=== PATIENT | male | born 1945 | race Caucasian/White ===

== ENCOUNTER 2023-03-09 23:35 | Inpatient (IN) | payer OTHER ==
[~2023-03-09] VITALS: Ht 170.2 cm; Wt 69.1 kg
[2023-03-09] MEDS ORDERED: PANTOPRAZOLE SODIUM 40 MG/VIAL IV ONE (23:45)
[2023-03-10] LABS: BASOPHILS % 0.2 % (0.0-2.0); EOSINOPHILS % 1.3 % (0.0-5.0); HEMATOCRIT. 28.2 % (42.0-52.0); HEMOGLOBIN. 9.5 g/dL (14.0-18.0); MEAN CORPUSCULAR HEMOGLOBIN 28.4 pg (28.0-32.0); MEAN CORPUSCULAR VOLUME 84.2 fL (80.0-94.0); MEAN PLATELET VOLUME 8.5 fl (7.4-10.4); MONOCYTES % 6.6 % (2.0-8.0); NEUTROPHILS % 59.9 % (40.0-76.0); PLATELET 230 x1000/uL (130-400); RED BLOOD CELL COUNT 3.35 mill/uL (4.7-6.1); RED CELL DISTRIBUTION WIDTH 14.6 % (11.6-14.6)
[2023-03-10 00:10] LABS: CHLORIDE 110 mEq/L (98-107)
[2023-03-10 00:11] LABS: INR 1.1; PARTIAL THROMBOPLASTIN TIME 25.6 sec (23.4-31.0); PROTHROMBIN TIME 11.5 sec (9.6-11.0)
[2023-03-10 00:20] LABS: ETHANOL BLOOD < 10 mg/dL; TOTAL IRON BINDING CAPACITY 264 ug/dL (250-450)
[2023-03-10 00:41] LABS: VITAMIN B12 SERUM 456 pg/mL (211-911)
[2023-03-10 01:30] LABS: *AMPHETAMINES SCREEN URINE NEGATIVE (NEGATIVE); *BARBITURATES SCREEN URINE NEGATIVE (NEGATIVE); *BENZODIAZEPINES SCREEN URINE NEGATIVE (NEGATIVE); *COCAINE SCREEN URINE NEGATIVE (NEGATIVE); CANNABINOID URINE SCREEN NEGATIVE (NEGATIVE); METHADONE URINE SCREEN NEGATIVE (NEGATIVE); OPIATES URINE SCREEN NEGATIVE (NEGATIVE); PHENCYCLIDINE URINE SCREEN NEGATIVE (NEGATIVE)
[2023-03-10 04:32] VITALS: BP 125/73
[2023-03-10 04:37] VITALS: BP 125/73
[2023-03-10] MEDS ORDERED: DOCUSATE SODIUM 100MG CAPSULE PO PRN (06:30)
[2023-03-10] MEDS ORDERED: ONDANSETRON HCL 4MG/2ML INJ IV PRN (06:30)
[2023-03-10] MEDS ORDERED: ACETAMINOPHEN 325MG TABLET PO PRN (06:30)
[2023-03-10] MEDS ORDERED: GUAIFENESIN 200MG/10ML SUGAR FREE UDC PO PRN (06:30)
[2023-03-10] MEDS ORDERED: IPRATROPIUM/ALBUTEROL 0.5-3(2.5)MG/3ML NEB HHN PRN (06:30)
[2023-03-10] MEDS ORDERED: CLONIDINE 0.1MG TABLET PO PRN (06:30)
[2023-03-10] MEDS ORDERED: DEXTROSE 50% WATER 50ML SYRINGE IV PRN (06:45)
[2023-03-10] MEDS ORDERED: PANTOPRAZOLE SODIUM 40 MG/VIAL IV SCH (06:50)
[2023-03-10] MEDS: BLOOD SUGAR DIAGNOSTIC STRIP TEST SCH ×4 (06:50→20:15)
[2023-03-10] MEDS: DEXT 5%/0.45% NACL 1000ML 1,000 ML IV SCH ×2 (06:54→20:14)
[2023-03-10] MEDS: INSULIN LISPRO 100 UNITS/ML SUBCUT SCH ×4 (07:02→20:14)
[2023-03-10] MEDS: METRONIDAZOLE 500 MG PREMIX 100 ML IV SCH ×2 (08:20→16:52)
[2023-03-10 08:45] VITALS: BP 108/70
[2023-03-10 10:39] LABS: BASOPHILS % 0.3 % (0.0-2.0); EOSINOPHILS % 0.9 % (0.0-5.0); HEMATOCRIT. 27.7 % (42.0-52.0); HEMOGLOBIN. 9.5 g/dL (14.0-18.0); LYMPHOCYTES % 23.6 % (20.0-50.0); MEAN CORPUSCULAR HEMOGLOBIN 28.7 pg (28.0-32.0); MEAN CORPUSCULAR VOLUME 83.3 fL (80.0-94.0); MEAN PLATELET VOLUME 9.1 fl (7.4-10.4); MONOCYTES % 7.5 % (2.0-8.0); NEUTROPHILS % 67.7 % (40.0-76.0); PLATELET 231 x1000/uL (130-400); RED BLOOD CELL COUNT 3.33 mill/uL (4.7-6.1); RED CELL DISTRIBUTION WIDTH 14.8 % (11.6-14.6)
[2023-03-10 11:30] LABS: CHLORIDE 110 mEq/L (98-107)
[2023-03-10 12:00] VITALS: BP 118/75
[2023-03-10 12:43] LABS: HEMATOCRIT 28.9 % (42.0-52.0); HEMOGLOBIN 9.7 g/dL (14.0-18.0); MEAN CORPUSCULAR HEMOGLOBIN 28.2 pg (28.0-32.0); MEAN CORPUSCULAR VOLUME 84.2 fL (80.0-94.0); PLATELET 243 x1000/uL (130-400); RED BLOOD CELL COUNT 3.44 mill/uL (4.7-6.1); RED CELL DISTRIBUTION WIDTH 14.9 % (11.6-14.6)
[2023-03-10] MEDS: ASCORBIC ACID 500 MG TABLET PO SCH ×2 (14:30→20:14)
[2023-03-10] MEDS: PANTOPRAZOLE SODIUM 40 MG/VIAL IV SCH ×2 (15:34→20:14)
[2023-03-10] MEDS: CYANOCOBALAMIN 1000MCG/ML VIAL SUBCUT SCH (15:34)
[2023-03-10] MEDS: FERROUS SULFATE 325MG TABLET PO SCH ×2 (15:35→20:14)
[2023-03-10 16:00] VITALS: BP 111/62
[2023-03-10 20:13] VITALS: BP 123/68
[2023-03-10 21:09] LABS: HEMATOCRIT 26.6 % (42.0-52.0); HEMOGLOBIN 8.9 g/dL (14.0-18.0); MEAN CORPUSCULAR HEMOGLOBIN 28.6 pg (28.0-32.0); MEAN CORPUSCULAR VOLUME 85.1 fL (80.0-94.0); PLATELET 219 x1000/uL (130-400); RED BLOOD CELL COUNT 3.13 mill/uL (4.7-6.1); RED CELL DISTRIBUTION WIDTH 14.7 % (11.6-14.6)
[2023-03-11] MEDS: METRONIDAZOLE 500 MG PREMIX 100 ML IV SCH ×3 (00:02→17:57)
[2023-03-11 00:04] VITALS: BP 115/74
[2023-03-11 02:16] LABS: HEMATOCRIT 26.6 % (42.0-52.0); MEAN CORPUSCULAR HEMOGLOBIN 28.1 pg (28.0-32.0); MEAN CORPUSCULAR VOLUME 82.9 fL (80.0-94.0); PLATELET 225 x1000/uL (130-400); RED BLOOD CELL COUNT 3.21 mill/uL (4.7-6.1); RED CELL DISTRIBUTION WIDTH 14.6 % (11.6-14.6)
[2023-03-11 04:19] VITALS: BP 106/73
[2023-03-11] MEDS: DEXT 5%/0.45% NACL 1000ML 1,000 ML IV SCH ×3 (04:19→22:30)
[2023-03-11 06:35] LABS: BASOPHILS % 0.4 % (0.0-2.0); EOSINOPHILS % 2.1 % (0.0-5.0); HEMATOCRIT. 26.5 % (42.0-52.0); LYMPHOCYTES % 31.4 % (20.0-50.0); MEAN CORPUSCULAR HEMOGLOBIN 28.5 pg (28.0-32.0); MEAN CORPUSCULAR VOLUME 83.7 fL (80.0-94.0); MEAN PLATELET VOLUME 8.7 fl (7.4-10.4); MONOCYTES % 8.7 % (2.0-8.0); NEUTROPHILS % 57.4 % (40.0-76.0); PLATELET 221 x1000/uL (130-400); RED BLOOD CELL COUNT 3.17 mill/uL (4.7-6.1); RED CELL DISTRIBUTION WIDTH 14.8 % (11.6-14.6)
[2023-03-11 06:36] LABS: INR 1.1; PROTHROMBIN TIME 11.3 sec (9.6-11.0)
[2023-03-11] MEDS: BLOOD SUGAR DIAGNOSTIC STRIP TEST SCH ×4 (06:50→21:00)
[2023-03-11] MEDS: INSULIN LISPRO 100 UNITS/ML SUBCUT SCH ×4 (06:55→21:00)
[2023-03-11 08:00] VITALS: BP 116/77
[2023-03-11 08:49] LABS: CHLORIDE 113 mEq/L (98-107)
[2023-03-11] MEDS: FERROUS SULFATE 325MG TABLET PO SCH ×2 (08:56→17:57)
[2023-03-11] MEDS: PANTOPRAZOLE SODIUM 40 MG/VIAL IV SCH ×2 (08:57→21:06)
[2023-03-11] MEDS: CYANOCOBALAMIN 1000MCG/ML VIAL SUBCUT SCH (08:58)
[2023-03-11] MEDS: ASCORBIC ACID 500 MG TABLET PO SCH ×2 (08:59→17:00)
[2023-03-11 09:04] LABS: T4 FREE 0.95 ng/dL (0.76-1.46)
[2023-03-11 12:00] VITALS: BP 116/61
[2023-03-11] MEDS ORDERED: DEXAMETHASONE 4MG/ML 1ML VIAL ONE (16:11)
[2023-03-11] MEDS ORDERED: ONDANSETRON HCL 4MG/2ML INJ ONE (16:11)
[2023-03-11] MEDS ORDERED: LIDOCAINE 2% 6ML GLYDO MM ONE (16:12)
[2023-03-11] MEDS ORDERED: LIDOCAINE HCL 1% 10 MG/ML 10ML VIAL ONE (16:12)
[2023-03-11] MEDS ORDERED: PROPOFOL 200MG/20ML VIAL IV ONE (16:12)
[2023-03-11] MEDS ORDERED: MIDAZOLAM HCL 2 MG/2 ML VIAL ONE (16:13)
[2023-03-11 16:15] VITALS: BP 139/77
[2023-03-11 20:00] VITALS: BP 125/75
[2023-03-12] VITALS: BP 126/81
[2023-03-12] MEDS: METRONIDAZOLE 500 MG PREMIX 100 ML IV SCH ×2 (00:24→09:22)
[2023-03-12 04:00] VITALS: BP 118/71
[2023-03-12 06:00] LABS: BASOPHILS % 0.1 % (0.0-2.0); HEMATOCRIT. 27.1 % (42.0-52.0); HEMOGLOBIN. 9.4 g/dL (14.0-18.0); LYMPHOCYTES % 21.2 % (20.0-50.0); MEAN CORPUSCULAR HEMOGLOBIN 28.9 pg (28.0-32.0); MEAN CORPUSCULAR VOLUME 83.3 fL (80.0-94.0); MEAN PLATELET VOLUME 8.7 fl (7.4-10.4); MONOCYTES % 4.8 % (2.0-8.0); NEUTROPHILS % 73.9 % (40.0-76.0); PLATELET 258 x1000/uL (130-400); RED BLOOD CELL COUNT 3.25 mill/uL (4.7-6.1); RED CELL DISTRIBUTION WIDTH 14.8 % (11.6-14.6)
[2023-03-12] MEDS: BLOOD SUGAR DIAGNOSTIC STRIP TEST SCH ×2 (06:30→11:38)
[2023-03-12] MEDS: INSULIN LISPRO 100 UNITS/ML SUBCUT SCH ×2 (07:20→12:15)
[2023-03-12 07:34] LABS: CHLORIDE 110 mEq/L (98-107)
[2023-03-12 07:47] LABS: PHOSPHORUS 2.6 mg/dL (2.5-4.9)
[2023-03-12 08:00] VITALS: BP 129/69
[2023-03-12] MEDS: ASCORBIC ACID 500 MG TABLET PO SCH (09:21)
[2023-03-12] MEDS: CYANOCOBALAMIN 1000MCG/ML VIAL SUBCUT SCH (09:22)
[2023-03-12] MEDS: FERROUS SULFATE 325MG TABLET PO SCH (09:22)
[2023-03-12] MEDS: PANTOPRAZOLE SODIUM 40 MG/VIAL IV SCH (09:22)
[2023-03-12] MEDS: DEXT 5%/0.45% NACL 1000ML 1,000 ML IV SCH (09:22)
[2023-03-12] MEDS ORDERED: ASCO500T20 PO (11:36)
[2023-03-12] MEDS ORDERED: FERR-63 PO (11:36)
[2023-03-12] MEDS ORDERED: OMEP40CA20 PO (11:36)
[2023-03-12 12:00] VITALS: BP 120/71
[2023-03-12 12:08] VITALS: BP 129/69
[2023-03-12] MEDS ORDERED: METRONIDAZOLE 500MG TABLET PO SCH (15:00)
== END 2023-03-12 13:40 | disposition home or self-care (01) | DRG 378 ==
LOC: ER 23:53 → 3WST 03-10 02:45 → ENRESERV 03-10 03:28
PROVIDERS: ADMIT Internal Medicine; ATTEND Internal Medicine
PROC: 0DB78ZX Excision of Stomach, Pylorus, Via Natural or Artificial Opening Endoscopic, Diagnostic (ICD-10-PCS; principal; 2023-03-11)
DX: K29.01 Acute gastritis with bleeding (principal); E87.20 Acidosis, unspecified; M19.90 Unspecified osteoarthritis, unspecified site; Z20.822 Contact with and (suspected) exposure to COVID-19; D50.9 Iron deficiency anemia, unspecified; M17.11 Unilateral primary osteoarthritis, right knee; K44.9 Diaphragmatic hernia without obstruction or gangrene; K04.7 Periapical abscess without sinus; Z96.651 Presence of right artificial knee joint
CPT/HCPCS: 36415; 71045; 74176; 80048; 80053; 80305; 80320; 82607; 82728; 82746; 82747; 82962; 83036; 83540; 83550; 83605; 83735; 83880; 84100; 84145; 84439; 84443; 84484; 85014; 85025; 85027; 85044; 86850; 86900; 87426; 88305; 93005; 97161; 97530; 99285; C9113; J1100; J2250; J2405; J2704; J3420; J3490; G0480